=== PATIENT | female | born 1995 | race African-American/Black ===

== ENCOUNTER 2017-03-25 10:58 | Emergency (ER) | payer OTHER ==
[2017-03-25 11:04] VITALS: BP 104/60; PULSE 71; RESP 20; TEMP 97.5; O2SAT 98
--- NOTE | 2017-03-25 11:37 | EDPHY ---
H & P Time Seen by Provider: 03/25/17 11:28 HPI/ROS: CHIEF COMPLAINT: Retained tampon HISTORY OF PRESENT ILLNESS: 22-year-old female via private vehicle complaining of retained tampon. Tampon has been in for approximately 10-12 hours No abdominal pain. No fever no chills. No urinary complaints such as dysuria hematuria increased frequency PHYSICAL EXAM (Prior to examination, patient consented to physical exam, hands were washed and my usual and customary physical exam procedures followed) 1) GENERAL: Well-developed, well-nourished, alert and oriented. Appears to be in no acute distress. 2) HEAD: Normocephalic 3) HEENT: sclera anicteric 4) LUNGS: Breathing comfortably. 5) PELVIC (with female nurse [ Monica at bedside): Normal female external genitalia, no lesions visualized. Speculum examination reveals a swollen tampon which is easily removed with sponge clamps, no other foreign bodies are visualized. 6) ABDOMEN: No guarding no rebound no McBurney's point pain no suprapubic pain Smoking Status: Never smoked Constitutional: Initial Vital Signs Temperature (C) 36.4 C 03/25/17 11:01 Heart Rate 71 03/25/17 11:01 Respiratory Rate 20 03/25/17 11:01 Blood Pressure 104/60 03/25/17 11:01 O2 Sat (%) 98 03/25/17 11:01 O2 Delivery Mode Room Air Allergies/Adverse Reactions: No Known Allergies Allergy (Unverified 03/25/17 11:01) Home Medications: Medication Instructions Recorded NK [No Known Home Meds] 03/25/17 MDM/Departure - Depart Disposition: Home, Routine, Self-Care Clinical Impression: Retained tampon Qualifiers: Encounter type: initial encounter Qualified Code(s): T19.2XXA - Foreign body in vulva and vagina, initial encounter Condition: Good Instructions: Vaginal Foreign Body (ED) Additional Instructions: Return to the ER if you develop vaginal discharge, abdominal pain or any other symptoms that concern you Referrals: DEISY Lee,. [Clinic] - 2-3 days, call for appt.
== END 2017-03-25 11:52 | disposition home or self-care (01) ==
DX: T19.2XXA Foreign body in vulva and vagina, initial encounter (principal); X58.XXXA Exposure to other specified factors, initial encounter